=== PATIENT | male | born 1980 | race American Indian/Alaskan Native ===

== ENCOUNTER 2021-08-07 07:59 | Emergency (ER) | payer SELFPAY ==
--- NOTE | 2021-08-07 08:48 | Emergency Department Report ---
ED CPR HPI - General Stated Complaint: CARDIAC ARREST Time Seen by Provider: 08/07/21 08:19 Source: family, EMS - History of Present Illness Initial Comments: Patient is 41 years old male with history of asthma and schizophrenia. Patient brought to the emergency room from home via EMS in a full cardiac arrest. CPR in progress. EMS stated that, on site nurse arrived at 705 approximately and patient found to be in asystole. CPR immediately started. Patient given epinephrine and intubated by EMS. ACLS protocol followed. EMS stated that the noticed change in the rhythm to PEA and then into V. fib. EMS stated that roseanna arreaga was shocked one time and patient went into asystole. Upon arrival to the ER, ACLS continued. ET tube confirmed by me with good breath sound on both side. Patient received epinephrine and bicarb. Patient rhythm remain asystole. Patient pronounced at 8:03 AM. For further information please refer to code sheet. Patient family arrived to the emergency room. Patient mother stated that the last time she talked to him was yesterday afternoon. She stated that she has a caregiver that came this morning to give him his medication. Mother stated that she heard him breathing loud but she does not know what happened after that. MD Complaint: found unresponsive -: unknown Place: home Initial Findings in the Field: no pulse, systole ROSC in the Field: No Associated Injuries: No Treatments Prior to Arrival: intubation, chest compressions, defribrillated shocks # (1), epinephrine mgs # (2), sodium bicarbonate ED Review of Systems ROS: Stated complaint: CARDIAC ARREST Other details as noted in HPI Comment: Unobtainable due to pts medical conditions ED Physical Exam - General General appearance: other (CPR in progress) - Head Head exam: Present: atraumatic, normal inspection - Eye Pupils: Present: other (Pupils are 5 mm, dilated and nonreactive to light.) - Respiratory Respiratory exam: Present: other (No spontaneous breathing.) - Cardiovascular Cardiovascular Exam: Present: other (CPR in progress) - GI/Abdominal GI/Abdominal exam: Present: soft - Neurological Exam Neurological exam: Present: other (CPR in progress) - Skin Skin exam: Present: warm, intact, normal color Critical Care Time: Yes Critical care time in (mins) excluding proc time.: 35 Critical care attestation.: If time is entered above; I have spent that time in minutes in the direct care of this critically ill patient, excluding procedure time. ED Disposition Clinical Impression: Cardiopulmonary arrest Disposition: 20 Is pt being admited?: No Condition: Stable
== END 2021-08-07 10:00 ==
LOC: EDBD → ED 07:59
DX: I46.9 Cardiac arrest, cause unspecified (principal)
CPT/HCPCS: 92950